=== PATIENT | male | born 1935 | race Caucasian/White ===

== ENCOUNTER 2024-01-14 19:41 | Emergency (ER) | payer MEDICARE, BC, SELFPAY ==
[2024-01-14 19:41] VITALS: BMI 24.7
[2024-01-14 19:42] VITALS: BP 125/63
[2024-01-14 20:19] LABS: % Basophils 0.1 % (0-2); % Eosinophils 0.1 % (0-6); % Immature Granulocytes 0.3 % (0-0.5); % Lymphocytes 16.6 % (20.5-51.1); % Monocytes 8.5 % (1.7-9.3); % Neutrophils 74.4 % (42.2-75.2); Absolute Lymphocytes 1.6 10^3/uL (1.2-3.4); Absolute Monocytes 0.8 10^3/uL (0.1-0.6); Hematocrit 31.3 % (39.0-52.0); Hemoglobin 10.6 g/dL (13.0-18.0); Mean Corp Hgb Conc. 33.9 g/dL (33.0-37.0); Mean Corpuscular Hgb 32.7 pg (27.0-31.0); Mean Corpuscular Volume 96.6 fL (80.0-94.0); Mean Platelet Volume 10.6 fL (7.4-10.4); Nucleated Red Blood Cells % 0 % (-); Platelet Count 122 10^3/uL (130-400); Red Blood Cell Count 3.24 10^6/uL (4.70-6.10); Red Cell Dist. Width 13.2 % (11.5-14.5); White Blood Cell Count 9.4 10^3/uL (4.8-10.8)
[2024-01-14 20:31] LABS: ALT (SGPT) 11 U/L (0-50); AST (SGOT) 25 U/L (17-59); Albumin 3.4 g/dl (3.5-5.0); Alkaline Phosphatase 60 U/L (38-126); Blood Urea Nitrogen 37 mg/dl (9-20); Calcium 9.5 mg/dl (8.4-10.2); Carbon Dioxide 24 mmol/L (22-30); Chloride 106 mmol/L (98-107); Glucose 104 mg/dl (70-99); Potassium 4.8 mmol/L (3.5-5.1); Sodium 132 mmol/L (135-145); Total Bilirubin 1.1 mg/dl (0.2-1.3); Total Protein 6.7 g/dl (6.3-8.2); eGFR 18.74
--- NOTE | 2024-01-14 21:16 | ED.GENMED ---
History of Present Illness
General
Chief Complaint: Abdominal Symptoms
Source: patient
Exam Limitations: none
Time Seen by Provider: 01/14/24 20:55
Nursing documentation reviewed up to this point in time: agreed with
Travel History
Have you had any contact with someone who has COVID-19?: No
Do you have any symptoms of coronavirus? Fever > 100 degrees, chills, cough, shortness of breath, sore throat, loss of taste or smell, muscle aches, or headache?: No
History of Present Illness
History of Present Illness:
88-year-old male presents to the ED for severe abdominal pain, left leg pain from melanoma. this has been ongoing for several months. He has been confused all day. His daughter states he is scheduled for a PET scan for his malignant melanoma.
Past History
Past History
ED Past Medical History: CAD, Cancer (malignant melanoma) and Hypercholesterolemia
ED Past Surgical History: Appendectomy, Bowel resection, Cardiac (cabg 1949), Cholecystectomy and Other (ileostomy)
Social History
Tobacco: Non-smoker
Alcohol: None
Drug: None
Personal:
Living: assisted living
Review of Systems
Review of Systems
Allergies reviewed?: Yes
Unable to obtain full review of systems at this time due to: dementia
All Other Systems: Not applicable
Constitutional: Reports no symptoms
EENT: Reports no symptoms
Respiratory: Reports no symptoms
Cardiac: Reports no symptoms
ABD/GI: Reports abdominal pain
: Reports no symptoms
Musculoskeletal: Reports no symptoms
Skin: Reports no symptoms
Neurological: Reports other (confusion)
Endocrine: Reports no symptoms
Hematologic/Lymphatic: Reports no symptoms
Psychiatric: Reports no symptoms
Phy Exam
Physical Exam
Physical Exam:
Physical Exam
General: no apparent distress, not acutely ill
Neck: supple. no meningeal signs. normal posterior pharynx
Heart: s1/s2 regular rate and rhythm, no murmur. equal radial
pulses.
HEENT: Pupils equal round reactive to light, EOMI
Lungs: no acute respiratory distress. clear bilaterally
Abdomen: normal bowel sounds. not tender. no CVAT, colostomy
Neuro: alert and oriented to person. no focal neurological deficits cranial nerves II through XII intact
Skin: no rash
Psychiatric: well kept. interactive and cooperative
Extremities: no edema. no calf tenderness. negative homans. good distal pulses
Course
Orders/Labs/Results
Orders:
Orders
01/14/24 20:12
Complete Blood Count/With Diff Urgent
Comprehensive Metabolic Panel Urgent
01/14/24 21:14
CT Head W/o Iv Contrast Urgent
Comment:
Reason For Exam: confusion 1-2 days
Abnormal Lab Results
01/14/24
20:12
RBC 3.24 L 10^6/uL
(4.70-6.10)
Hgb 10.6 L g/dL
(13.0-18.0)
Hct 31.3 L %
(39.0-52.0)
MCV 96.6 H fL
(80.0-94.0)
MCH 32.7 H pg
(27.0-31.0)
Plt Count 122 L 10^3/uL
(130-400)
MPV 10.6 H fL
(7.4-10.4)
Absolute Neuts (auto) 7.0 H 10^3/uL
(1.4-6.5)
Absolute Monos (auto) 0.8 H 10^3/uL
(0.1-0.6)
Lymphocytes % 16.6 L %
(20.5-51.1)
Sodium 132 L mmol/L
(135-145)
BUN 37 H mg/dl
(9-20)
Creatinine 3.1 H mg/dL
(0.7-1.3)
Glucose 104 H mg/dl
(70-99)
Albumin 3.4 L g/dl
(3.5-5.0)
01/14/24 20:12
01/14/24 20:12
Vital Signs
Initial and Last Documented VS:
Initial Vital Signs
Temp Pulse Resp BP Pulse Ox
97.5 F 59 16 125/63 99
01/14/24 19:42 01/14/24 19:42 01/14/24 19:42 01/14/24 19:42 01/14/24 19:42
Last Documented Vital Signs
Temp Pulse Resp BP Pulse Ox
97.5 F 59 16 125/63 99
01/14/24 19:42 01/14/24 19:42 01/14/24 19:42 01/14/24 19:42 01/14/24 19:42
MDM/Problems Addressed
Differential Diagnosis Includes:
CVA, delirium, bowel obstruction
MDM/Problems Addressed:
88-year-old male with abdominal pain, likely related to hernia next ostomy bag. No pain while in ED. Abdomen exam benign. CT head no acute findings. Labs no acute findings. Compared with labs from patient portal at [facility]. Recent creatinine
was 3 in December.
Chronic conditions affecting care: Cancer (Malignant melanoma)
Acute Exacerbation and/or Progression of Chronic Illness: Cancer (Malignant melanoma)
*Radiology
Radiology exam reviewed: radiology read reviewed (CT head no acute findings)
*Pulse Oximetry
Patient hypoxic: no
*EKG
Interpreted by ED Provider?: NA
*Billboard Mechanic Interpretation
Rate: Billboard Mechanic- N/A
*Critical Care Note
Total Time (30-74mins, 75-104mins- exclusive of procedures): Not Applicable
Data Reviewed
Review of Other/Old Records Reveals: Labs (Labs from December 2023 at [facility] showed creatinine of 3.05)
Source: records and family
Patient Management
Social determinants of health affecting care: Living situation
Escalation/DeEscalation of care consider admission/obs:
Admit not indicated
ED Attending Note
-
Portions of this chart may have been created with voice recognition software.� Occasional wrong word or��sound alike� substitutions may have occurred due to the inherent limitations of voice recognition software.
Discharge Plan
Departure
Patient Disposition: Home (Routine Discharge)
Date of Disposition: 01/14/24
Time of Disposition: 23:31
Patient with high blood pressure during this ER visit?: Yes
Condition: Good
Discharge Problem:
Acute alteration in mental status, Abdominal pain
Instructions: Altered Mental Status (DC), Abdominal Pain, BLOOD PRESSURE
Referrals:
Zuleyma Tracy MD [Family Provider] - Call in 1-3 days for appt
Interventions
Interventions:
*Risk Screen - Suicide Last Done: 01/14/24 19:42
*General Assessment Last Done: 01/14/24 21:17
*Neglect/Abuse Screening Last Done: 01/14/24 21:17
ED- Fall Risk Assessment Last Done: 01/14/24 21:17
RL-Skuakr-Gmjjyddbtl Assessment Last Done: 01/14/24 21:17
Discharge Date and Time
Print Language: YI
[2024-01-14 23:00] VITALS: BP 129/60
== END 2024-01-15 00:26 | disposition home or self-care (01) ==
LOC: EMR 19:41
PROVIDERS: EMERGENCY PHYSICIAN Emergency Medicine; FAMILY PHYSICIAN Internal Medicine Geriatric Medicine
DX: R10.9 Unspecified abdominal pain (principal); R41.82 Altered mental status, unspecified; M79.605 Pain in left leg; R03.0 Elevated blood-pressure reading, without diagnosis of hypertension; C43.9 Malignant melanoma of skin, unspecified; G89.3 Neoplasm related pain (acute) (chronic); I25.10 Atherosclerotic heart disease of native coronary artery without angina pectoris; E78.00 Pure hypercholesterolemia, unspecified; K52.9 Noninfective gastroenteritis and colitis, unspecified; N18.9 Chronic kidney disease, unspecified; M10.9 Gout, unspecified; Z93.3 Colostomy status; Z95.1 Presence of aortocoronary bypass graft; Z98.0 Intestinal bypass and anastomosis status; Z90.49 Acquired absence of other specified parts of digestive tract
CPT/HCPCS: 99284; 70450; 80053; 85025